=== PATIENT | female | born 1955 | race Caucasian/White ===

== ENCOUNTER → 2016-08-28 | Outpatient (CLI) | payer OTHER ==
[~2016-08-28] VITALS: Ht 167.6 cm; Wt 71.7 kg
[~2016-08-28] MED LIST: AMOX500T2 PO; APRE30TA2 PO; ASCO10006 PO; CALC-185 PO; CATHETER FLUSH 10 ML SYR IV PRN; CHOL200014 PO; CYCL10TA9 PO; ESTR1TAB24 PO; FLUC100T6 PO; FLUO20TA28 PO; HYDR-3812 PO; LACT1TAB11 PO; LEVO1CAP11 PO; METF500T4 PO; MULT-10 PO; PANT40TA3 PO; PRAV40TA2 PO; PREG75CA PO; REGADENOSON 0.4 MG/5 ML SYR (LEXISCAN) IV ONE; [UNRECOGNIZED DRUG - OTHER] PO
--- OUTSIDE RECORDS SUMMARY | 2016-08-28 07:11 | XMS REPORT | Continuity of Care Document ---
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 Medications Current Home Medications Medication Dose Units Route Directions Days/Qty Instructions Start Date Apremilast 30 Mg 30 Mg Oral Twice A Day 05/01/16 Fluconazole 100 Mg 100 Mg Oral Daily 05/01/16 Levomefolate/B6/B12/Algal Oil 1 Each 1 Each Oral Daily 05/01/16 Pravastatin Sodium 40 Mg 40 Mg Oral Bedtime 05/01/16 Metformin Hcl 500 Mg 500 Mg Oral Daily 05/01/16 Estradiol 1 Mg 1 Mg Oral Bedtime 05/01/16 Pantoprazole Sodium 40 Mg 40 Mg Oral Daily 05/01/16 Fluoxetine Hcl 20 Mg 20 Mg Oral Bedtime 05/01/16 Amoxicillin 500 Mg 500 Mg Oral Three Times A Day 05/01/16 Cyclobenzaprine Hcl 10 Mg 10 Mg Oral Three Times A Day 05/01/16 Pregabalin 75 Mg 75 Mg Oral Twice A Day 05/01/16 Multivits,Stress Formula 1 Each 1 Each Oral Daily 05/01/16 Ascorbic Acid 1,000 Mg 2,000 Mg Oral Daily take 2 (1,000mg) tabs 05/01 Calcium Carb&Cit/Mag12/Vit D3 1 Each 2,000 Mg Oral Daily take 4 (500mg ) tabs 05/01/16 Cholecalciferol (Vitamin D3) 2,000 Unit 4,000 Unit Oral Daily take 2 (2 ,000iu) TABS 05/01/16 Lactobacillus Combo No.6 1 Each 1 Each Oral Daily 05/01/16 [Gale Pectin] 360 Mg Oral Twice A Day 05/01/16 Social History Social History Problem Response Recorded Date/Time Alcohol Use Denies Use 05/01/2016 10:28am Recreational Drug Use No 05/01/2016 10:28am Recent Foreign Travel No 05/01/2016 10:28am Recent Infectious Disease Exposure No 05/01/2016 10:28am Smoking Status Current Everyday Smoker 05/01/2016 10:28am Recent Hopitalizations No 05/01/2016 10:28am Query Response Start Date Stop Date Smoking Status Current Everyday Smoker Hospital Discharge Instructions No hospital discharge instructions. Plan of Care Discharge Date 05/01/16 10:59am Prescriptions See Medication Section Functional Status No functional status results. Allergies, Adverse Reactions, Alerts Allergen Type Severity Reaction Status Last Updated Codeine Allergy Unknown itching Active 05/01/16 Aspirin Allergy Unknown passed out Active 05/01/16 soap Allergy Unknown burning pain Active 05/01/16 povidone-iodine ([id number]) Allergy Unknown burning pain Active 05/01/16 tolmetin ([id number]) Allergy Unknown passes out Active 05/01/16 anti inflammatories Allergy Unknown passed out Active 05/01/16 Immunizations No immunization records. Vital Signs Acute Vital Signs Vital Response Date/Time Height (Feet) 5 feet 05/01/2016 10:27am Height (Inches) 6.00 inches 05/01/2016 10:27am Height (Calculated Centimeters) 167.685303 cm 05/01/2016 10:27am Weight (Pounds) 150 pounds 05/01/2016 10:27am Weight (Ounces) 0.0 oz 05/01/2016 10:27am Weight (Calculated Grams) 20796.86 gm 05/01/2016 10:27am Weight (Calculated Kilograms) 68.005962 kilograms 05/01/2016 10:27am Calculated BMI 24.2 05/01/2016 10:27am Results No known relevant diagnostic tests, laboratory data and/or discharge summary. Procedures No known history of procedures. Encounters Encounter Location Arrival/Admit Date Discharge/Depart Date Attending Provider Departed Clinic [facility] 05/01/16 10:21am 05/01/16 10: 59am GABRIEL RAY MD
[2016-08-28 08:07] VITALS: BP 137/86
[2016-08-28 08:21] VITALS: BP 146/90
[2016-08-28 08:23] VITALS: BP 151/86
[2016-08-28 08:25] VITALS: BP 153/85
--- NOTE | 2016-08-28 19:09 | STRESS TEST ---
PROCEDURE PHYSICIAN: ALYSSIA LOZANO DATE OF PROCEDURE: 08/28/2016 RESTING AND POST REGADENOSON TECHNETIUM 99M TETROFOSMIN SPECT CT IMAGING: ORDERING PHYSICIAN: Dr. Roach. PRIMARY PHYSICIAN: Dr. Roach CLINICAL DIAGNOSIS: R07.9 R53.83 Baseline images were carried out after injection of 10.73 mCi of technetium 99m tetrofosmin. This was followed by 0.4 mg of Regadenoson and 30.8 mCi of technetium 99 tetrofosmin for stress imaging. This was carried out under Dr. Roach's supervision and the electrocardiographic portion of the study is reported separately by him. Review of images at rest and following stress, does not indicate any distinct perfusion defects consistent with any significant myocardial ischemia or infarction. Gated images show normal global left ventricular systolic function with normal regional wall motion. Left ventricular ejection fraction is calculated to be 68%. Left ventricular end-diastolic volume is 42 mL. TID is absent (0.9). CONCLUSIONS: 1. No evidence of significant myocardial ischemia or infarction on this study. 2. Normal global left ventricular systolic function with a calculated ejection fraction of 68%. 3. Normal regional wall motion. 4. Normal left ventricular cavity size. Job ID: [id number] Dictated Date: 08/28/2016 13:02:21 [employer] Date: 08/28/2016 19:05:19 / [email or web address]
== END ==
LOC: CARD 07:08
PROVIDERS: ATTEND Internal Medicine
DX: R07.9 Chest pain, unspecified (principal); R53.83 Other fatigue
CPT/HCPCS: 78452; 93017